=== PATIENT | male | born 1995 | race Caucasian/White ===

== ENCOUNTER 2021-02-25 09:11 | Emergency (ER) | payer BC, SELFPAY ==
[2021-02-25 09:25] VITALS: BP 124/73; PULSE 58; RESP 16; TEMP 36.3; O2SAT 99
--- NOTE | 2021-02-25 09:25 | ED.SKABFB ---
HPI - Skin/Abscess/Foreign Bdy General Chief complaint: Skin/Abscess/Foreign Body Stated complaint: poison michael Time Seen by Provider: 02/25/21 09:26 Source: patient Mode of arrival: ambulatory Limitations: no limitations History of Present Illness HPI narrative: Ted Tellez is a 25-year-old male with no PMH who comes to [facility] with a rash around his right eye and left arm after cutting back of breath branches of bushes 2 days ago. He is extremely allergic to poison michael and is concerned that we will spread. 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 EYES: Denies visual changes, redness, discharge. ENT: Denies rhinorrhea, congestion, sore throat, otalgia. CARDIOVASCULAR: Denies chest pain, palpitations, edema. RESPIRATORY: Denies dyspnea, wheezing, cough GASTROINTESTINAL: Denies abdominal pain, nausea, vomiting, diarrhea. GENITOURINARY: Denies dysuria, hematuria, abnormal discharge SKIN: Pruritic papular rash small area of right eyelid and left forearm NEUROLOGIC: Denies numbness, or focal weakness. PSYCHIATRIC: Denies anxiety or depression. PMFSH Past Medical History Medical History No acute medical problems Family History Family History (Updated 02/25/21 @ 09:36 by Ying Monson CNP) Other No acute medical problems Social History Social History (Updated 02/25/21 @ 09:37 by Ying Monson CNP) Smoking status: Never smoker Alcohol intake: current Gender identity (if verbalized by the patient): Male Comments At time of signature, I agree with nursing past medical, surgical, social and family history. There is no relevant family history pertinent to the presenting complaint. Exam Narrative: Exam Narrative: GENERAL: This is a well-nourished, well-developed patient, in mild distress. HEAD: normocephalic, atraumatic. EYES: Sclera clear/white. Vision is grossly intact. EARS: External ears normal. Hearing grossly intact. NOSE: External nose normal without nasal discharge, nares without redness, no rhinorrhea. THROAT: Mucous membranes moist, NECK: Neck supple, CARDIOVASCULAR: Regular rate and rhythm without murmurs, gallops, or rubs. RESPIRATORY: Clear to auscultation. Breath sounds equal bilaterally. No wheezes, rales, or rhonchi. GASTROINTESTINAL: Abdomen soft, SKIN: warm, intact with small amount of pruritic papular rash small amount on left forearm and over the right eye no swelling in visual brady NEURO: awake, alert, and oriented to person, place and time. There were no obvious focal neurologic abnormalities. Steady gait EXTREMITIES: Normal range of motion. BACK: Nontender without deformity Course Course Emergency Course: Patient comes with a small amount of a pruritic rash on left forearm and over right eyelid Started on prednisone 60 and Benadryl 25 here given Medrol Dosepak and prednisone to take at home Discussed washing off well from skin and objects environment Vital Signs Vital signs: Vital Signs Temperature 97.3 F L 02/25/21 09:25 Pulse Rate 58 L 02/25/21 09:25 Respiratory Rate 16 02/25/21 09:25 Blood Pressure 124/73 02/25/21 09:25 Pulse Oximetry 99 02/25/21 09:25 Temperature 97.3 F L 02/25/21 09:25 Pulse Rate 58 L 02/25/21 09:25 Respiratory Rate 16 02/25/21 09:25 Blood Pressure 124/73 02/25/21 09:25 Pulse Oximetry 99 02/25/21 09:25 MDM - Skin/Abscess/Foreign Bdy Differential Diagnosis Differential diagnosis: Likely abscess of skin or subcutaneous tissue, urticaria, eczema, contact dermatitis and other Critical Care Time Critical Care Time Critical Care Time: No Discharge Plan Dis
[2021-02-25] MEDS: diphenhydrAMINE HCl CAP 25 MG CAPSULE PO (09:39)
[2021-02-25] MEDS: predniSONE 20 MG TABLET 60 MG PO (09:39)
== END 2021-02-25 09:55 | disposition home or self-care (01) ==
PROVIDERS: Emergency Provider Nurse Practitioner
DX: L23.7 Allergic contact dermatitis due to plants, except food (principal)
CPT/HCPCS: 99213; A9270; G0463; J7512

== ENCOUNTER 2021-02-26 09:24 | Emergency (ER) | payer BC, SELFPAY ==
[2021-02-26 09:33] VITALS: BP 127/78; PULSE 69; RESP 16; TEMP 37.2; O2SAT 98
--- NOTE | 2021-02-26 09:38 | ED.SKABFB ---
HPI - Skin/Abscess/Foreign Bdy General Chief complaint: Skin/Abscess/Foreign Body Stated complaint: Rash Time Seen by Provider: 02/26/21 09:38 Source: patient Mode of arrival: ambulatory Limitations: no limitations History of Present Illness HPI narrative: Ted Sheth is a 25 yo male with no PMH who came here yesterday for the beginning of a break-up with ilene rodriguez who has returned because he says that he is getting more lesions. He did not take the prednisone that he was prescribed to be taking this morning because he decided to come here and demand an injection of prednisone. He was given 60 mg prednisone p.o. along with Benadryl yesterday Related Data Allergies Allergy/AdvReac Type Severity Reaction Status Date / Time No Known Allergies Allergy Unverified 02/26/21 09:26 Review of Systems Review of Systems: Narrative: CONSTITUTIONAL: Denies fever, chills, sweats. EYES: Denies visual changes, redness, discharge. ENT: Denies rhinorrhea, congestion, sore throat, otalgia. CARDIOVASCULAR: Denies chest pain, palpitations, edema. RESPIRATORY: Denies dyspnea, wheezing, cough GASTROINTESTINAL: Denies abdominal pain, nausea, vomiting, diarrhea. GENITOURINARY: Denies dysuria, hematuria, abnormal discharge SKIN: Contact dermatitis, left forearm, right eyelid, states around waist now NEUROLOGIC: Denies numbness, or focal weakness. PSYCHIATRIC: Denies anxiety or depression. PMFSH Past Medical History Medical History No acute medical problems Family History Family History Other No acute medical problems Social History Social History Smoking status: Never smoker Alcohol intake: current Gender identity (if verbalized by the patient): Male Comments At time of signature, I agree with nursing past medical, surgical, social and family history. There is no relevant family history pertinent to the presenting complaint. Exam Narrative: Exam Narrative: GENERAL: This is a well-nourished, well-developed patient, in mild distress. HEAD: normocephalic, atraumatic. EYES: PERRL. Sclera clear/white. Vision is grossly intact. EARS: External ears normal, auditory canals clear and without drainage, TMs normal without perforation. Hearing grossly intact. NOSE: External nose normal without nasal discharge, nares without redness, no rhinorrhea. THROAT: Mucous membranes moist, posterior pharynx NECK: Neck supple, non-tender CARDIOVASCULAR: Regular rate and rhythm without murmurs, gallops, or rubs. RESPIRATORY: Clear to auscultation. Breath sounds equal bilaterally. No wheezes, rales, or rhonchi. GASTROINTESTINAL: Abdomen soft, non-tender, SKIN: warm, intact with small area of rash on R eye. L forearm, left lowerabdomen NEURO: awake, alert, and oriented to person, place and time. There were no obvious focal neurologic abnormalities. Steady gait EXTREMITIES: Normal range of motion. BACK: Nontender without deformity Course Course Emergency Course: Patient was seen here yesterday for poison michael breakout on the right upper lid and left forearm does have remained stable he is not having an additional rash on his left lower abdomen and is demanding a prednisone shot A long discussion with patient about how poison michael spreads and about contact dermatitis and that if he continues to have breakout of poison michael that is coming contact with the oil such as either on his close or issues are gloves or something that he is continuing to touch he has not changed his close since yesterday but he denies that he has any way to get in contact with oils and just spreads. I went over the same information I gave him yesterday about taking a cool shower using soapy water to wash off his skin and to use hot soapy water on any close stools close shoes that has come in contact with the plant. Patient's
[2021-02-26] MEDS: methylPREDNISolone SOD SUCC 125 MG VIAL IM (10:02)
== END 2021-02-26 10:08 | disposition home or self-care (01) ==
PROVIDERS: Emergency Provider Nurse Practitioner; PCP Internal Medicine
DX: L23.7 Allergic contact dermatitis due to plants, except food (principal)
CPT/HCPCS: 96372; 99213; G0463; J2930